=== PATIENT | female | born 1985 | race African-American/Black ===

== ENCOUNTER 2024-05-27 23:12 | Emergency (ER) | payer SELFPAY ==
[~2024-05-27] VITALS: Ht 180.3 cm; Wt 90.0 kg
[2024-05-27 23:20] VITALS: TEMP 98.5; O2SAT 99
[2024-05-28 00:17] VITALS: BP 162/112; PULSE 97; RESP 16
[2024-05-28] MEDS ORDERED: LORAZEPAM 1MG TABLET PO ONE (00:45)
== END 2024-05-28 00:40 | disposition left against medical advice (07) ==
LOC: ER 23:12
DX: F41.9 Anxiety disorder, unspecified (principal); F41.0 Panic disorder [episodic paroxysmal anxiety]; F32.9 Major depressive disorder, single episode, unspecified
CPT/HCPCS: 99283